=== PATIENT | male | born 1975 | race Caucasian/White ===

== ENCOUNTER 2017-03-06 10:45 | Emergency (ER) | payer SELFPAY ==
[~2017-03-06] VITALS: Ht 170.2 cm; Wt 69.4 kg
[2017-03-06 10:47] VITALS: BP 138/80
[2017-03-06] MEDS ORDERED: KETOROLAC 30 MG/1 ML IM ONE (11:30)
[2017-03-06] MEDS ORDERED: DIAZEPAM 5 MG TABLET PO ONE (11:30)
[2017-03-06] MEDS ORDERED: KETOROLAC 30 MG/1 ML ONE (11:49)
[2017-03-06] MEDS ORDERED: DIAZEPAM 5 MG TABLET ONE (11:49)
== END 2017-03-06 12:40 | disposition home or self-care (01) ==
LOC: ED 12:34
DX: M48.02 Spinal stenosis, cervical region (principal); F17.210 Nicotine dependence, cigarettes, uncomplicated
CPT/HCPCS: 72050; 93005; 96372; 99284; J1885

== ENCOUNTER 2017-04-22 07:21 | Emergency (ER) | payer OTHER ==
[~2017-04-22] VITALS: Ht 167.6 cm; Wt 70.0 kg
[2017-04-22 07:30] VITALS: BP 128/80
[2017-04-22] MEDS ORDERED: DIAZEPAM 5 MG TABLET ONE (07:34)
[2017-04-22] MEDS ORDERED: KETOROLAC 30 MG/1 ML ONE (07:34)
[2017-04-22] MEDS ORDERED: OXYcodone/APAP 5/325MG TABLET ONE (07:34)
[2017-04-22] MEDS ORDERED: DIAZEPAM 5 MG TABLET PO ONE (08:00)
[2017-04-22] MEDS ORDERED: KETOROLAC 30 MG/1 ML IM ONE (08:00)
[2017-04-22] MEDS ORDERED: OXYcodone/APAP 5/325MG TABLET PO ONE (08:00)
== END 2017-04-22 09:14 | disposition home or self-care (01) ==
LOC: ED 08:19
DX: S39.012A Strain of muscle, fascia and tendon of lower back, initial encounter (principal); W17.89XA Other fall from one level to another, initial encounter; Y93.39 Activity, other involving climbing, rappelling and jumping off; Y92.89 Other specified places as the place of occurrence of the external cause; Y99.8 Other external cause status
CPT/HCPCS: 72110; 73501; 96372; 99284; J1885